=== PATIENT | female | born 1940 | race Caucasian/White ===

== ENCOUNTER 2024-02-04 23:09 | Inpatient (IN) | payer MEDICARE ==
[~2024-02-04] VITALS: Ht 170.2 cm; Wt 50.8 kg
[2024-02-04 23:45] LABS: BASOPHILS % (AUTO) 0.5 % (0.0-2.0); EOSINOPHILS % (AUTO) 0.1 % (0.0-6.0); HEMATOCRIT 31 % (33-45); HEMOGLOBIN 10.3 g/dL (11.5-14.8); LYMPHOCYTES # (AUTO) 0.5 K/uL (0.8-4.8); LYMPHOCYTES % (AUTO) 5.4 % (20.0-44.0); MEAN CORPUSCULAR HEMOGLOBIN 30 PG (26.0-33.0); MEAN CORPUSCULAR HGB CONC 33 g/dl (31.0-36.0); MEAN CORPUSCULAR VOLUME 91 fL (82-100); MONOCYTES # (AUTO) 0.6 K/uL (0.1-1.30); MONOCYTES % (AUTO) 6.8 % (2.0-12.0); NEUTROPHILS % (AUTO) 87.2 % (43.0-81.0); PLATELET COUNT (AUTO) 218 K/uL (150-450); RED BLOOD CELL COUNT(AUTO) 3.39 MIL/uL (4.0-5.2); RED CELL DISTRIBUTION WIDTH 15.4 % (11.5-15.0); WHITE BLOOD COUNT (AUTO) 9.2 K/uL (4.3-11.0)
[2024-02-04 23:54] LABS: CALCIUM, SERUM 9.1 mg/dL (8.5-10.1); CARBON DIOXIDE 26 mmol/L (21-32); CHLORIDE 98 mmol/L (98-107); CREATININE 0.9 mg/dL (0.6-1.3); GLUCOSE 200 mg/dL (74-106); POTASSIUM 4.9 mmol/L (3.5-5.1); SODIUM SERUM 134 mmol/L (136-145); UREA NITROGEN, BLOOD 31 mg/dL (7-18)
[2024-02-05 00:08] LABS: ALANINE AMINOTRANSFERASE 31 U/L (12-78); ALBUMIN 3.5 g/dL (3.4-5.0); ALKALINE PHOSPHATASE 129 U/L (46-116); ASPARTATE AMINOTRANSFERASE 22 U/L (15-37); BILIRUBIN,TOTAL 0.7 mg/dL (0.2-1.0); NT-PRO BNP 8585 pg/mL (0-125); TOTAL PROTEIN, SERUM 7.4 g/dL (6.4-8.2)
[2024-02-05 00:09] LABS: INR 1.09 (0.91-1.10); PROTHROMBIN TIME 11.5 SECS (9.2-11.1)
[2024-02-05] MEDS ORDERED: Z GUARD REMEDY 4 OZ OINT TP PRN (02:00)
[2024-02-05] MEDS ORDERED: MAGNESIUM HYDROXIDE 30 ML UDC PO PRN (02:00)
[2024-02-05] MEDS ORDERED: MAG HYDROX/AL HYDROX/SIMETH 30 ML UDC PO PRN (02:00)
[2024-02-05] MEDS ORDERED: ONDANSETRON HCL/PF 4 MG/2 ML VIAL IVP PRN (02:00)
[2024-02-05] MEDS ORDERED: ACETAMINOPHEN 325 MG TABLET PO PRN (02:00)
[2024-02-05 02:40] VITALS: BP 138/68; TEMP 98.8; O2SAT 93
[2024-02-05] MEDS: PANTOPRAZOLE 40 MG TABLET.DR PO SCH (07:46)
[2024-02-05 08:00] VITALS: BP 134/68; TEMP 98.2; O2SAT 91
[2024-02-05 09:50] VITALS: BP 106/74; TEMP 95.1; O2SAT 96
[2024-02-05] MEDS ORDERED: FURO-145 PO (10:05)
[2024-02-05] MEDS ORDERED: GABA-532 PO (10:05)
[2024-02-05] MEDS ORDERED: LIDO1ADH71 TD (10:05)
[2024-02-05] MEDS ORDERED: ASPI-1169 PO (10:05)
[2024-02-05] MEDS ORDERED: FLUT1BLS6 IH (10:05)
[2024-02-05] MEDS ORDERED: LACT1CAP69 PO (10:05)
[2024-02-05] MEDS ORDERED: EMPA25TA PO (10:05)
[2024-02-05] MEDS ORDERED: SITA100T PO (10:05)
[2024-02-05] MEDS ORDERED: METO25TA6 PO (10:05)
[2024-02-05] MEDS ORDERED: OXYC5TAB3 PO (10:05)
[2024-02-05] MEDS ORDERED: NATE120T6 PO (10:05)
[2024-02-05] MEDS ORDERED: POTA20TA83 PO (10:05)
[2024-02-05] MEDS ORDERED: MELA5TAB PO (10:05)
[2024-02-05] MEDS ORDERED: FAMO20TA8 PO (10:05)
[2024-02-05] MEDS ORDERED: PANT40TA2 PO (10:05)
[2024-02-05] MEDS ORDERED: GABA300C PO (10:05)
[2024-02-05] MEDS ORDERED: ROSU20TA2 PO (10:05)
[2024-02-05] MEDS ORDERED: Medication Not On Formulary EA (Melatonin 10 MG) PO PRN (11:30)
[2024-02-05] MEDS ORDERED: DEXTROSE 50%-WATER 50 ML DISP.SYRIN IV PRN (12:00)
[2024-02-05] MEDS: BLOOD SUGAR DIAGNOSTIC 1 EACH STRIP VI SCH (12:11)
[2024-02-05] MEDS: LINAGLIPTIN 5 MG TABLET PO SCH (12:33)
[2024-02-05] MEDS: GABAPENTIN 100 MG CAPSULE PO SCH (12:33)
[2024-02-05] MEDS: ACIDOPHILUS/BULGARICUS 1 EACH TAB.CHEW PO SCH (12:33)
[2024-02-05] MEDS: ASPIRIN 81 MG TAB.CHEW PO SCH (12:33)
[2024-02-05] MEDS: ATORVASTATIN 40 MG TABLET PO SCH (12:33)
[2024-02-05] MEDS: METOPROLOL TARTRATE 25 MG TABLET PO SCH (12:36)
[2024-02-05 13:19] LABS: THYROID STIMULATING HORMONE 5.142 uIU/mL (0.358-3.74)
[2024-02-05] MEDS ORDERED: oxyCODONE IR immediate release 5 MG TABLET PO PRN (13:30)
[2024-02-05] MEDS: EMPAGLIFLOZIN 25 MG TABLET PO SCH (13:57)
[2024-02-05] MEDS: NATEGLINIDE 60 MG TABLET PO SCH (13:57)
[2024-02-05 16:00] VITALS: BP 116/64; TEMP 98.1; O2SAT 95
[2024-02-05] MEDS ORDERED: FUROSEMIDE 20 MG TABLET PO SCH (17:00)
[2024-02-05] MEDS ORDERED: METOPROLOL TARTRATE 25 MG TABLET PO SCH (17:00)
[2024-02-05] MEDS: INSULIN REGULAR, HUMAN 100 UNIT/ML 3 ML VIAL SQ PRN (17:45)
[2024-02-05 20:00] VITALS: BP 119/69; TEMP 97.9; O2SAT 89
[2024-02-05] MEDS: GABAPENTIN 300 MG CAPSULE PO SCH (21:36)
[2024-02-05] MEDS: LIDOCAINE 5% (PATCH) 1 EA PATCH TP SCH (21:36)
[2024-02-05] MEDS: *INSULIN REGULAR(HUMULIN R)HUM 100 UNIT/ML VIAL SQ PRN (21:46)
[2024-02-05] MEDS: TRAMADOL HCL 50 MG TABLET PO PRN (21:52)
[2024-02-06 07:17] LABS: BASOPHILS # (AUTO) 0.1 K/uL (0.0-0.2); BASOPHILS % (AUTO) 0.9 % (0.0-2.0); EOSINOPHILS # (AUTO) 0.2 K/uL (0.0-0.7); EOSINOPHILS % (AUTO) 2.4 % (0.0-6.0); HEMATOCRIT 31 % (33-45); HEMOGLOBIN 10.1 g/dL (11.5-14.8); LYMPHOCYTES # (AUTO) 0.7 K/uL (0.8-4.8); LYMPHOCYTES % (AUTO) 11.1 % (20.0-44.0); MEAN CORPUSCULAR HEMOGLOBIN 30 PG (26.0-33.0); MEAN CORPUSCULAR HGB CONC 33 g/dl (31.0-36.0); MEAN CORPUSCULAR VOLUME 91 fL (82-100); MONOCYTES # (AUTO) 0.8 K/uL (0.1-1.30); MONOCYTES % (AUTO) 12.1 % (2.0-12.0); NEUTROPHILS # (AUTO) 4.6 K/uL (1.8-8.9); NEUTROPHILS % (AUTO) 73.5 % (43.0-81.0); PLATELET COUNT (AUTO) 205 K/uL (150-450); RED BLOOD CELL COUNT(AUTO) 3.42 MIL/uL (4.0-5.2); RED CELL DISTRIBUTION WIDTH 14.9 % (11.5-15.0); WHITE BLOOD COUNT (AUTO) 6.2 K/uL (4.3-11.0)
[2024-02-06 07:30] VITALS: BP 108/70; TEMP 98.2; O2SAT 95
[2024-02-06] MEDS: PANTOPRAZOLE 40 MG TABLET.DR PO SCH (08:35)
[2024-02-06] MEDS ORDERED: GABAPENTIN 100 MG CAPSULE PO SCH (09:00)
[2024-02-06] MEDS ORDERED: EMPAGLIFLOZIN 25 MG TABLET PO SCH (09:00)
[2024-02-06] MEDS ORDERED: POTASSIUM CHLORIDE 20 MEQ TAB.PRT.SR PO SCH (09:00)
[2024-02-06] MEDS ORDERED: ATORVASTATIN 40 MG TABLET PO SCH (09:00)
[2024-02-06] MEDS ORDERED: ASPIRIN 81 MG TAB.CHEW PO SCH (09:00)
[2024-02-06] MEDS ORDERED: LINAGLIPTIN 5 MG TABLET PO SCH (09:00)
[2024-02-06 09:10] LABS: CALCIUM, SERUM 8.5 mg/dL (8.5-10.1); CARBON DIOXIDE 26 mmol/L (21-32); CHLORIDE 100 mmol/L (98-107); CREATININE 0.8 mg/dL (0.6-1.3); GLUCOSE 109 mg/dL (74-106); MAGNESIUM 2.3 mg/dL (1.8-2.4); PHOSPHORUS 3.5 mg/dL (2.5-4.9); POTASSIUM 4.1 mmol/L (3.5-5.1); SODIUM SERUM 134 mmol/L (136-145); UREA NITROGEN, BLOOD 19 mg/dL (7-18)
[2024-02-06] MEDS: SOD FERRIC GLUC 125 MG in IV NS 0.9% 100 ML IV SCH (14:21)
[2024-02-06 16:00] VITALS: BP 121/67; TEMP 98.2; O2SAT 92
[2024-02-06 20:00] VITALS: BP 123/58; TEMP 98; O2SAT 95
[2024-02-07 08:13] VITALS: BP 128/68; TEMP 97.2; O2SAT 99
[2024-02-07 16:00] VITALS: BP 123/70; TEMP 98.2; O2SAT 91
[2024-02-07] MEDS: GLUCERNA SHAKE 237 ML CAN PO SCH (17:15)
[2024-02-07 20:00] VITALS: BP 131/54; TEMP 98.6; O2SAT 92
[2024-02-07 20:13] VITALS: O2SAT 99
[2024-02-07] MEDS: ALBUTEROL FS 2.5 MG/0.5 ML VIAL.NEB NEB SCH (20:13)
[2024-02-07] MEDS: IPRATROPIUM NEB FS 0.5 MG/2.5 ML AMPUL.NEB NEB SCH (20:13)
[2024-02-07 20:23] VITALS: O2SAT 99
[2024-02-08] VITALS (8 sets, daily range): BP systolic 120; BP diastolic 70; TEMP 98.1; O2SAT 93–100
[2024-02-08] MEDS ORDERED: FERR325T23 PO (11:33)
[2024-02-08] MEDS ORDERED: BUDESONIDE RESPULE INH 0.5 MG/2 ML AMPUL.NEB NEB SCH (19:30)
== END 2024-02-08 15:43 | DRG 536 ==
LOC: ER 23:13 → MED 02-05 02:17
PROVIDERS: ADMIT Student in an Organized Health Care Education/Training Program; ATTEND Internal Medicine
DX: S32.591A Other specified fracture of right pubis, initial encounter for closed fracture (principal); S32.119A Unspecified Zone I fracture of sacrum, initial encounter for closed fracture; J81.1 Chronic pulmonary edema; E87.1 Hypo-osmolality and hyponatremia; J90 Pleural effusion, not elsewhere classified; E11.9 Type 2 diabetes mellitus without complications; D64.9 Anemia, unspecified; W18.30XA Fall on same level, unspecified, initial encounter; Y92.9 Unspecified place or not applicable; Z95.2 Presence of prosthetic heart valve; Z88.6 Allergy status to analgesic agent; Z95.1 Presence of aortocoronary bypass graft; I25.10 Atherosclerotic heart disease of native coronary artery without angina pectoris; I48.91 Unspecified atrial fibrillation; E86.0 Dehydration; R79.89 Other specified abnormal findings of blood chemistry; Z79.01 Long term (current) use of anticoagulants; Z87.891 Personal history of nicotine dependence
CPT/HCPCS: 36415; 70450-TC; 71045-TC; 71250-TC; 72192-TC; 80048-TC; 80053-TC; 80061-TC; 82728-TC; 82962-TC; 83540-TC; 83735-TC; 83880; 84100-TC; 84439-TC; 84443-TC; 84484-TC; 85025-TC; 85610-TC; 93307-TC; 94799-TC; 97110-TC; 97116-TC; 97530-TC; 97535-TC; A4223; G0378; J1815; J2916; J7030; J7050